=== PATIENT | male | born 1990 | race Caucasian/White ===

== ENCOUNTER 2016-07-08 09:35 | Day surgery (SDC) | payer BC, OTHER ==
[2016-07-08] MEDS ORDERED: IOPAMIDOL 300 (61%) 150 ML VIAL IV ONE (09:36)
[2016-07-08] MEDS ORDERED: KETOROLAC TROMETHAMINE 30 MG/ML 1 ML VIAL ONE (10:27)
[2016-07-08] MEDS ORDERED: SODIUM CHLORIDE 0.9% 1,000 ML ONE (10:27)
[2016-07-08 10:50] LABS: BASO % 0.2 % (0.2-1.0); EOS # 0.1 (0.0-0.5); EOS % 0.8 % (0.9-2.9); HEMATOCRIT 48.6 % (32.0-52.0); HEMOGLOBIN 17.1 gm/l (14.0-18.0); IMM NEUT # 0.1 K/mm3 (0-0.2); IMM NEUT% 0.4 % (0-1); LYMPH # 1.7 (1.0-4.8); LYMPH % 10.1 % (15-45); MEAN CELL VOLUME 92.4 fl (80.0-94.0); MEAN CORPUSCULAR HEMOGLOBIN 32.5 pg (27.0-31.0); MEAN CORPUSCULAR HGB CONC 35.2 g/dl (33.0-37.0); MEAN PLATELET VOLUME 8.8 fl (7.4-10.4); MONO # 0.9 (0.0-0.8); MONO % 5.6 % (4-12); NEUT % 82.9 % (43-75); PLATELET COUNT 256 K/mm3 (130-400)
[2016-07-08 11:02] LABS: ALB/GLOB RATIO 1.5 (>1.0); ALBUMIN 4.4 gm/dL (3.5-5.7); CALCIUM 9.3 mg/dL (8.6-10.3)
[2016-07-08 11:28] LABS: URINE BILIRUBIN NEGATIVE (NEGATIVE); URINE BLOOD TRACE (NEGATIVE); URINE GLUCOSE (UA) NEGATIVE (NEGATIVE); URINE LEUKOCYTE ESTERASE NEGATIVE (NEGATIVE); URINE NITRITE NEGATIVE (NEGATIVE); URINE PROTEIN NEGATIVE (NEGATIVE); URINE UROBILINOGEN NORMAL (0-1 mg/dl)
[2016-07-08 11:29] LABS: URINE APPEARANCE CLEAR; URINE COLOR YELLOW
--- NOTE | 2016-07-08 11:35 | CT ---
Name: PAUL REESE Exam: CT abdomen pelvis with contrast Comparison: None History: Right lower quadrant pain Procedure: Helical CT using multidetector technique was applied to the abdomen and pelvis during intravenous administration of 125 cc Isovue-300. No oral contrast was given per ordering physician. An automated dose reduction technique was used to minimize patient radiation dose. Findings: CT abdomen (contrast enhanced): Lung bases are clear. Heart is not enlarged. There is no pericardial effusion. Liver, gallbladder, bile ducts, pancreas, spleen, adrenal glands, kidneys, aorta, IVC and portal vein are within normal limits. Stomach, small bowel and colon are within normal limits. There is no free air free fluid or adenopathy. Regional skeleton is within normal limits. CT pelvis (contrast enhanced): The bladder is partially filled. Prostate and seminal vesicles are within normal limits. Small bowel and colon are normal. There is trace free fluid. The appendix measures 8.4 mm in diameter and there is enhancement of the appendiceal wall there is no free air or abscess. Impression: 1. Findings suspicious for early appendicitis. There is no current evidence for perforation. Note: Findings were discussed with Dr. Gustafson 1131 hours
[2016-07-08 11:37] LABS: URINE BACTERIA RARE; URINE EPITHELIAL CELLS 0 /hpf; URINE RBC 0-1 /hpf; URINE WBC NEG /hpf
[2016-07-08] MEDS ORDERED: CEFAZOLIN SODIUM 1 GRAM PREMIX 1 G in Premix (D5W) 50 ml 1 EACH IV PRN (12:13)
[2016-07-08] MEDS ORDERED: BLISTEX LIPSTICK 1 EACH TP PRN (12:13)
[2016-07-08] MEDS ORDERED: ACETAMINOPHEN 650 MG SUP PR PRN (12:13)
[2016-07-08] MEDS ORDERED: KETOROLAC TROMETHAMINE 30 MG/ML 1 ML VIAL IV PRN ×2 (12:13→16:30)
[2016-07-08] MEDS ORDERED: ONDANSETRON 4 MG/2ML 2 ML VIAL IV PRN ×3 (12:13→18:00)
[2016-07-08] MEDS ORDERED: HYDROMORPHONE HCL 1 MG/ML SYRINGE IV PRN ×2 (12:13→15:10)
[2016-07-08] MEDS ORDERED: MENTHOL/CETYLPYRD 1 EACH LOZENGE PO PRN (12:13)
[2016-07-08] MEDS ORDERED: D5 1/2NS with 20 mEq KCL 1,000 ML IV SCH ×2 (12:15→15:45)
[2016-07-08] MEDS ORDERED: BUPIVACAINE 0.5% (PRES FREE) 30 ML VIAL ONE (13:15)
[2016-07-08] MEDS ORDERED: LIDOCAINE 1%/EPI (MULTI DOSE) 20 ML VIAL ONE (13:15)
[2016-07-08] MEDS ORDERED: PROPOFOL 20 ML IV ONE (13:18)
[2016-07-08] MEDS ORDERED: LIDOCAINE 2% (PRES FREE) 5 ML VIAL ONE (13:18)
[2016-07-08] MEDS ORDERED: FENTANYL 5 ML ONE (13:18)
[2016-07-08] MEDS ORDERED: SUCCINYLCHOLINE CHL 20 MG/ML DOSE ONE (13:18)
[2016-07-08] MEDS ORDERED: MIDAZOLAM HCL 1 MG/ML 2ML VIAL ONE (13:18)
[2016-07-08] MEDS ORDERED: LACTATED RINGERS 1,000 ML ONE (13:54)
--- NOTE | 2016-07-08 14:10 | CONS ---
PAUL REESE [id number] DATE OF CONSULTATION: July 08, 2016 CONSULTING PHYSICIAN: Cory Gustafson M.D. HISTORY OF PRESENT ILLNESS: I had the pleasure of seeing Mr. Reese who is a 25-year-old male in the [facility] Emergency Department. He presented with approximately a one week history of abdominal pain worsened over the last 24 hours. The pain localizes to the right lower quadrant. I believe Mr. Reese is downplaying his complaints due to a fear of his need to return to his employment. Mr. Reese presents with a history of abdominal pain, again localized over the right lower quadrant. Based on this, emergency physician Dr. Gustafson ordered a CAT scan for evaluation. On the CAT scan, Mr. Reese has an enlarged thick-walled appendix consistent with acute appendicitis. No additional issues or concerns on the CAT scan. Mr. Reese also complained of the possibility with difficulty in urination but his urine dip is negative without signs of infection. His white count reveals a white count of 16.8. His remaining blood work is relatively normal with a slight increase in his glucose to 104 and a slightly abnormal bilirubin at 1.2 which may represent Gilbert's disease. On physical examination, Mr. Reese, again I believe that he is downplaying his abdominal pain but he does have pain in the right lower quadrant on deep palpation which appears to be the most significant site of his abdominal pain. PAST MEDICAL HISTORY: No significant past medical history. PAST SURGICAL HISTORY: He has a history of orthopedic surgery on his right arm. CURRENT MEDICATIONS: No current medications. ALLERGIES: NO KNOWN DRUG ALLERGIES. I had a long discussion today with Mr. Reese. I reviewed the diagnosis of acute appendicitis. This appears not to be perforated on his CAT scan. I discussed the option of IV antibiotics versus laparoscopic appendectomy. I reviewed the risks and benefits of surgery which included but were not limited to deep venous thrombosis, myocardial infarction, pulmonary embolism, wound infection, urinary tract infection, kidney failure, respiratory failure, reaction to medication reaction to the anesthetic and hernia. I also discussed the risks of leak at the staple line for the appendectomy. I also discussed the risks of postoperative abscess and the potential finding and alternative diagnosis. Specifically discussed diagnosis of Crohn's disease. Based on this, Mr. Reese wishes to proceed with surgery and informed consent was obtained. Again, he is quite concerned about his employment and states that he needs to be back at work tomorrow which I told him seems a little bit ambitious but the first step to getting him back to normal would be laparoscopic appendectomy. We will plan to proceed with surgery at the earliest convenience for a laparoscopic possible open appendectomy.
[2016-07-08] MEDS ORDERED: GLYCOPYRROLATE 0.2 MG/ML 1ML VIAL ONE (14:42)
[2016-07-08] MEDS ORDERED: NEOSTIGMINE METHYLSULFATE 1 MG/ML DOSE ONE (14:42)
[2016-07-08] MEDS ORDERED: MEPERIDINE 25 MG/ML SYRINGE IV PRN (15:10)
[2016-07-08] MEDS ORDERED: NALOXONE HCL 0.4 MG/ML VIAL IV PRN (15:10)
[2016-07-08] MEDS ORDERED: PROMETHAZINE HCL 25 MG/ML VIAL IM PRN (15:10)
[2016-07-08] MEDS ORDERED: ATROPINE SULFATE 0.4 MG/1 ML VIAL IV PRN (15:10)
[2016-07-08] MEDS ORDERED: FENTANYL 100 MCG/2 ML VIAL IV PRN (15:10)
[2016-07-08] MEDS ORDERED: LACTATED RINGERS 1,000 ML IV SCH (15:15)
[2016-07-08 15:27] VITALS: BMI 23.3
[2016-07-08] MEDS ORDERED: ACETAMINOPHEN 325 MG TABLET PO PRN (15:32)
--- NOTE | 2016-07-08 15:36 | PCMON ---
Date of Procedure: 07/08/16 Start Time: 14:30 PREOPERATIVE DIAGNOSIS Acute appendicitis. POSTOPERATIVE DIAGNOSIS Acute appendicitis without perforation. PROCEDURE PERFORMED Laparoscopic appendectomy. COMPLICATIONS None. OPERATIVE FINDINGS Acute appendicitis without] perforation ESTIMATED BLOOD LOSS 30 ml BRIEF INDICATIONS PAUL REESE is a 25 year old M patient that was admitted with symptoms of acute appendicitis. The preoperative CBC revealed a elevated WBC, physical examination demonstrated RLQ abdominal tenderness, and CT scan supported the diagnosis of acute appendicitis. Risks and benefits of surgery were explained to the patient, including the risk of bowel resection, stoma creation and the possible need for conversion to open technique. The patient declined the possible alternatives and agreed to proceed with surgery, providing informed consent. DESCRIPTION OF PROCEDURE The patient was brought to the operating room and placed supine on the operating room table. A surgical briefing was held to verify the correct patient and correct procedure. A general anesthetic was induced uneventfully, followed by the administration of a subcutaneous heparin injection and perioperative antibiotics. Pneumatic compression stockings were placed on the legs and powered on. A Tello catheter was placed to closed gravity drainage. The abdomen was prepped and draped in a sterile fashion. A 5-mm direct optical view trocar was used to enter the left lower quadrant under direct vision of the abdominal wall layers. Once inside the abdominal cavity, a pneumoperitoneum was created. No injury to underlying structures occurred with placement of this trocar. Once inside the abdominal cavity, an additional 12-mm port was placed periumbilically in the midline. An additional 5-mm port was placed in the midline just above the pubis. All trocars were placed under direct visualization. There was no injury to underlying structures with placement of these trocars. The patient was placed in Trendelenburg position with the right side up. The appendix was visualized at the base of the cecum. The appendix was mobilized allowing identification of the mesoappendix and the base of the appendix. The cecum was not involved by the appendiceal inflammation. A window was created at the base between the appendix and the mesoappendix, and the appendix was then amputated at its base with a blue load Endo GISELLA stapler. The mesentery of the appendix was then divided with a vascular load of the Endo GISELLA stapler. The appendix was then removed through the 12-mm midline port using an Endocatch bag. The staple lines were evaluated for hemostasis; no hemorrhage was identified. The RLQ was irrigated with warm saline. The left lower quadrant and suprapubic ports were removed under direct laparoscopic vision, and the incisions were hemostatic. The pneumoperitoneum was then evacuated. The fascia of the 12-mm port was closed with 0 Vicryl. All of the ports and instruments were removed. The skin was closed with 4-0 absorbable subcuticular sutures. Steri-Strips were placed over the incisions and sterile dressings applied. The needle and sponge counts were correct x2 at the completion of the procedure. The patient had no apparent intraoperative complication identified.
[2016-07-08] MEDS ORDERED: PUMP TUBING ONE (17:04)
[2016-07-08] MEDS: OXYCODONE HCL 5 MG TABLET PO PRN ×2 (17:58→20:39)
[2016-07-08 20:58] VITALS: BP 140/82
[2016-07-09] MEDS ORDERED: Heparin Sodium 5000 unit/0.5ml syringe SUB-Q SCH (10:15)
--- NOTE | 2016-07-11 10:51 | SURGPATH ---
[facility] [address] [place] [id number] Patient Name: PAUL RESEE MR#: [id number] : 1990 Gender: M Specimen #: [id number] Collected: 07/08/2016 Received: 07/10/2016 Reported: 07/11/2016 Submitting Phys: KELTON HOWARD Copy To Phys: [facility] Clinical History / Pre-Operative Diagnosis: Acute appendicitis Specimen Source / Surgical Procedure Performed: Appendix Interpretation: APPENDIX, APPENDECTOMY: - ACUTE APPENDICITIS Electronically Signed Out Malik Dockery M.D. Gross Description: The specimen is received in formalin labeled with the patient's name and "appendix". The specimen consists of a 5.5 x 0.7 x 0.7 cm vermiform appendix with attached mesoappendix. The base is stapled without identifiable exudate. The mucosa is minimally hemorrhagic. A perforation or obstruction is not identified. The entire appendix is submitted. A. base and tip B.-D. central appendix Alba Dominique [place], [place] Microscopic Description: The sections show appendix with areas of acute inflammation involving the mucosa and submucosa. Focal areas of mucosal ulceration are present. 1: [id number] K35.89
== END 2016-07-08 21:15 | disposition home or self-care (01) ==
LOC: ED 09:35 → SDC 12:02 → MS 12:02 → SDC 21:15
PROVIDERS: ATTEND Surgery
PROC: 0DTJ4ZZ Resection of Appendix, Percutaneous Endoscopic Approach (ICD-10-PCS; principal; 2016-07-08)
DX: K35.80 Unspecified acute appendicitis (principal)
CPT/HCPCS: 44970; 83690; 85025; 80053; 81001; 74177; 99284; 96374; 96361 ×2; 99285; J0690; J3010; A9270 ×3; J1885; J2250; J7120; J7030 ×2; Q9967

== ENCOUNTER 2016-07-15 15:39 | Emergency (ER) | payer BC, OTHER ==
[2016-07-15] MEDS ORDERED: IOPAMIDOL 300 (61%) 150 ML VIAL IV ONE (15:40)
--- NOTE | 2016-07-15 17:38 | CT ---
Exam: CT abdomen and pelvis with contrast COMPARISON: 07/08/2016 INDICATION: Right lower quadrant pain. Appendectomy one week ago. TECHNIQUE: CT examination of the abdomen and pelvis was obtained following the administration 125 mL Isovue-300 intravenous contrast. FINDINGS: Postsurgical changes of interval appendectomy are appreciated, with surgical clips along the cecum as well as evidence of a laparoscopic technique with a focal soft tissue inflammatory changes in the midline epigastrium and subcutaneous gas within the left mid abdomen. No postoperative fluid collections are identified. There is a solitary tiny focus of intraperitoneal gas beneath the left rectus muscle towards midline on axial image 78, not unexpected. There is no bowel obstruction or free fluid. There is no significant pelvic lymphadenopathy. Gallbladder is contracted in this nonfasting state. The liver, spleen, pancreas, kidneys and adrenal glands are unremarkable. Tiny fat-containing periumbilical hernia similar. Lung bases are clear. No worrisome osseous abnormality is identified. IMPRESSION: No acute findings identified to explain right lower quadrant pain following appendectomy. Expected postsurgical changes are identified, and there is no postoperative fluid collection. Report was uploaded to the EMR at 1734 hours 07/15/2016.
== END 2016-07-15 18:10 | disposition home or self-care (01) ==
LOC: ED 15:39
DX: G89.18 Other acute postprocedural pain (principal); R10.9 Unspecified abdominal pain
CPT/HCPCS: 74177; 99283; 99284; Q9967

== ENCOUNTER 2016-09-04 23:35 | Emergency (ER) | payer BC, OTHER | END 2016-09-05 02:23 | disposition home or self-care (01) | LOC: ED 23:35 | DX: J40 Bronchitis, not specified as acute or chronic (principal) ==